=== PATIENT | female | born 1980 | race Caucasian/White ===

== ENCOUNTER 2020-12-02 09:43 | Emergency (ER) | payer OTHER ==
[2020-12-02 10:42] LABS: BASOPHIL 0.7 % (0-2); HGB 12.4 g/dl (12.5-16.0); LYMPHOCYTE 17.5 % (15-48); MCH 28.5 pg (25.0-31.0); MCHC 32.6 g/dL (32.0-36.0); MCV 87.4 fL (78.0-100.0); MONOCYTE 5.7 % (0-12); MPV 9.4 fL (6.0-9.5); NEUTROPHIL 74.8 % (41-80); NRBC 0; PLT 267 K/uL (150-400); RBC 4.35 M/uL (4.20-5.40); RDW 14.5 % (11.5-14.0); WBC 10.6 K/uL (4.0-10.5)
[2020-12-02 11:08] LABS: BUN/CREAT RATIO (CALC) 22.2 RATIO; CREATININE 0.72 mg/dL (0.51-0.95); POTASSIUM 4.2 mmol/L (3.5-5.1)
[2020-12-02] MEDS ORDERED: PERCOCET 5-3251 EACH PO (13:24)
[2020-12-02] MEDS ORDERED: MEDROL 4MG DOSEP4 MG PO (13:24)
[2020-12-02] MEDS ORDERED: CYCLOBENZAPRINE10 MG PO (13:24)
[2020-12-02] MEDS ORDERED: IBUPROFEN800 MG PO (13:24)
== END 2020-12-02 14:00 | disposition home or self-care (01) ==
LOC: FER 09:43 → EDSEX 09:43 → EDBD 09:43 → FER 14:00
PROVIDERS: Emergency Medicine Emergency Medical Services
DX: S30.0XXA Contusion of lower back and pelvis, initial encounter (principal); S50.02XA Contusion of left elbow, initial encounter; M25.512 Pain in left shoulder; M54.2 Cervicalgia; M54.6 Pain in thoracic spine; F17.290 Nicotine dependence, other tobacco product, uncomplicated; W10.9XXA Fall (on) (from) unspecified stairs and steps, initial encounter; Y92.009 Unspecified place in unspecified non-institutional (private) residence as the place of occurrence of the external cause
CPT/HCPCS: 36415; 71260; 72125; 80048; 85025; J1170; J2405; J7030; Q9967